=== PATIENT | female | born 1970 | race Caucasian/White ===

== ENCOUNTER 2017-02-03 09:59 | Emergency (ER) | payer OTHER ==
[~2017-02-03] VITALS: Ht 162.6 cm; Wt 63.5 kg
[2017-02-03] MEDS ORDERED: IV NORMAL SALINE 1,000ML 1,000 ML IV SCH (11:00)
[2017-02-03 11:01] LABS: BASO % 0 % (0-3); EOS # 0.6 x10^3/uL (0.0-0.7); EOS % 9 % (0-3); HEMATOCRIT 41.2 % (36.0-47.0); HEMOGLOBIN 14.1 g/dL (12.0-15.5); LYMPH # 2.4 x10^3/uL (1.0-4.8); LYMPH % 34 % (24-48); MEAN CORPUSCULAR HEMOGLOBIN 31 pg (25-35); MEAN CORPUSCULAR HGB CONC 34 g/dL (31-37); MEAN CORPUSCULAR VOLUME 89 fL (79-100); MONO # 0.4 x10^3/uL (0.0-1.1); MONO % 6 % (0-9); NEUT # 3.6 x10^3uL (1.8-7.7); NEUT % 51 % (31-73); PLATELET COUNT 212 x10^3/uL (140-400); RED BLOOD COUNT 4.61 x10^6/uL (3.50-5.40); RED CELL DISTRIBUTION WIDTH 12.4 % (11.5-14.5)
[2017-02-03 11:12] LABS: ALBUMIN 3.1 g/dL (3.4-5.0); ALBUMIN/GLOBULIN RATIO 0.8 (1.0-1.7); CALCIUM 8.7 mg/dL (8.5-10.1); GFR 59.7; TOTAL BILIRUBIN 0.5 mg/dL (0.2-1.0); TOTAL PROTEIN 6.9 g/dL (6.4-8.2)
[2017-02-03] MEDS ORDERED: IOHEXOL 300 MG/ML 75 ML VIAL. IV ONE (11:15)
--- NOTE | 2017-02-03 12:04 | PHYS DOC ---
Past History Past Medical History: No Pertinent History Past Surgical History: No Surgical History Alcohol Use: None Drug Use: None Adult General Chief Complaint Chief Complaint: ABNORMAL LABS HPI HPI Patient is a 46-year-old female who was sent to the ED by the doctor's office after having lab tests done yesterday which returned with an elevated d-dimer of 3.16. Patient tells me that since January 30, she has been having pain off and on. She had some on Sunday afternoon, Sunday morning she was fine the it occurred again in the afternoon, and then she was up for about 3:58 in the morning. she felt bad all day with the pain. Sunday in the morning she felt better by 2 in the afternoon the pain started again. She went to the clinic for evaluation and had tests done, see below. The pain is described as "not really burning, feeling a little bit like being kicked in the stomach, kind of like gas pain but not really". She's had some nausea but no vomiting and has not really felt like she was going to vomit. She had chills last night. No changes in her stool. She doesn't believe the pain has really changed with eating. She did try some [place] which sounds like a Tums type product yesterday without relief. She took Aleve a couple of times without relief. The pain is at its worst, it is "severe" and she lays in a dark room curled up. At some times it is completely gone. It is gone right now. Patient had a cholecystectomy in 2007 for gallbladder problems, she does not know whether or not she had gallstones. She's never had pain exactly like this before that possibly her gallbladder pain was kind of like this. Patient denies history of DVT or PE. Does not believe she is , she is on Gilda. Denies history of ulcer. They are family who came to the area recently. Lab tests faxed from the [facility] that were done yesterday: EKG read by me. Sinus rhythm. Heart rate 65. There are no acute ST or T wave changes indicative of ischemia or infarction. No STEMI. Normal EKG. This was done 02/02/2017 at 1638 CBC: WBC 9.7, hemoglobin 14.5, platelets 259 Chemistries: BUN 13, creatinine 0.85, electrolytes normal. Glucose 86. Total bili 0.3, alkaline phosphatase 110, transaminases 24 and 29. Lipase 26, troponin less than 0.01. D-dimer elevated at 3.16, normal range up to 0.49. Review of Systems Review of Systems Constitutional: As in history of present illness Eyes: Denies change in visual acuity, redness, or eye pain [] HENT: Denies nasal congestion or sore throat [] Respiratory: Denies cough or shortness of breath [] Cardiovascular: Denies chest pain, her pain is lower GI: As in history of present illness : Denies dysuria or hematuria [] Musculoskeletal: Denies back pain or joint pain [] Integument: Denies rash or skin lesions [] Neurologic: Denies headache, focal weakness or sensory changes [] Current Medications Current Medications Current Medications Medications (Trade) Dose Ordered Sig/Jacek Start Time Stop Time Status Last Admin Dose Admin Iohexol (Omnipaque 300 Mg/ml) 75 ml 1X ONCE 02/03/17 11:15 02/03/17 11:16 DC 02/03/17 11:32 75 ML Sodium Chloride 1,000 ml @ 1,000 mls/hr Q1H 02/03/17 11:00 02/03/17 11:59 Allergies Allergies Allergies Coded Allergies Type Severity Reaction Last Updated Verified Sulfa (Sulfonamide Antibiotics) Allergy Intermediate Rash 02/03/17 Yes Physical Exam Physical Exam Constitutional: Well developed, well nourished, no acute distress, non-toxic appearance. Alert, mentating normally, states she is free of pain at this time HENT: Normocephalic, atraumatic, bilateral external ears normal, nose normal. [ ] Eyes: conjunctiva normal, no discharge. [] Neck: Normal range of motion, no stridor. [] Cardiovascular:Heart rate regular rhythm, no murmur [] Lungs & Thorax: Bilateral breath sounds clear to auscultation [] Abdomen: Bowel sounds normal, soft, no tenderness, no masses, no pulsatile masses. No guarding or rebound, no tenderness, abdomen is entirely benign at this time. Skin: Warm, dry, no erythema, no rash. [] Extremities: No tenderness, no cyanosis, no clubbing, ROM intact, no edema. [] Neurologic: Alert and oriented X 3, normal motor function, normal sensory function, no focal deficits noted. [] Current Patient Data Vital Signs Vital Signs Date Time Temp Pulse Resp B/P (MAP) Pulse Ox O2 Delivery O2 Flow Rate FiO2 02/03/17 11:05 64 20 103/54 (70) 95 Room Air 02/03/17 09:59 98.2 Lab Results Laboratory Tests Test 02/03/17 10:40 02/03/17 11:03 White Blood Count 7.0 x10^3/uL (4.0-11.0) Red Blood Count 4.61 x10^6/uL (3.50-5.40) Hemoglobin 14.1 g/dL (12.0-15.5) Hematocrit 41.2 % (36.0-47.0) Mean Corpuscular Volume 89 fL (79-100) Mean Corpuscular Hemoglobin 31 pg (25-35) Mean Corpuscular Hemoglobin Concent 34 g/dL (31-37) Red Cell Distribution Width 12.4 % (11.5-14.5) Platelet Count 212 x10^3/uL (140-400) Neutrophils (%) (Auto) 51 % (31-73) Lymphocytes (%) (Auto) 34 % (24-48) Monocytes (%) (Auto) 6 % (0-9) Eosinophils (%) (Auto) 9 % (0-3) H Basophils (%) (Auto) 0 % (0-3) Neutrophils # (Auto) 3.6 x10^3uL (1.8-7.7) Lymphocytes # (Auto) 2.4 x10^3/uL (1.0-4.8) Monocytes # (Auto) 0.4 x10^3/uL (0.0-1.1) Eosinophils # (Auto) 0.6 x10^3/uL (0.0-0.7) Basophils # (Auto) 0.0 x10^3/uL (0.0-0.2) Sodium Level 139 mmol/L (136-145) Potassium Level 4.0 mmol/L (3.5-5.1) Chloride Level 104 mmol/L (98-107) Carbon Dioxide Level 27 mmol/L (21-32) Anion Gap 8 (6-14) Blood Urea Nitrogen 12 mg/dL (7-20) Creatinine 1.0 mg/dL (0.6-1.0) Estimated GFR (Cockcroft-Gault) 59.7 BUN/Creatinine Ratio 12 (6-20) Glucose Level 85 mg/dL (70-99) Calcium Level 8.7 mg/dL (8.5-10.1) Total Bilirubin 0.5 mg/dL (0.2-1.0) Aspartate Amino Transferase (AST) 16 U/L (15-37) Alanine Aminotransferase (ALT) 28 U/L (14-59) Alkaline Phosphatase 98 U/L (46-116) Total Protein 6.9 g/dL (6.4-8.2) Albumin 3.1 g/dL (3.4-5.0) L Albumin/Globulin Ratio 0.8 (1.0-1.7) L Lipase 112 U/L (73-393) POC Urine HCG, Qualitative hcg negative (Negative) EKG EKG [] Radiology/Procedures Radiology/Procedures CT angiogram of the chest read by the radiologist. Negative for pulmonary embolism or other acute findings. CT of the abdomen and pelvis read by the radiologist. Entirely normal for any findings, normal liver, pancreas, spleen, bile ducts. [] Course & Med Decision Making Course & Med Decision Making Pertinent Labs and Imaging studies reviewed. (See chart for details) 46-year-old female has had intermittent epigastric pain for 5 days now. On my evaluation, the pain seems more GI to me. She was seen in the office yesterday and had labs and EKG which were only positive for elevated d-dimer. She was sent for the concern of elevated d-dimer but on my evaluation I believe her pain seems more GI. Therefore, I did order CT angiography for rule out PE but also ordered CT of the abdomen and pelvis. Patient was pain-free in the emergency department. CT scans are all unrevealing and therefore reassuring. She has had cholecystectomy, the CT scan imaged her bile ducts well and there is no indication on labs or CT scan of a bile duct etiology. I believe she should have GI follow-up and probably endoscopy as the next step. Discussed this with the patient and her . We will start her on a PPI for now. See instructions for plan. [] Dragon Disclaimer Dragon Disclaimer This chart was dictated in whole or in part using Voice Recognition software in a busy, high-work load, and often noisy Emergency Department environment. It may contain unintended and wholly unrecognized errors or omissions. Departure Departure: Impression: Primary Impression: Abdominal pain, acute, epigastric Disposition: HOME, SELF-CARE Condition: STABLE Referrals: PCP,NO (PCP) Patient Instructions: Abdominal Pain, [id number] Additional Instructions: Today, lab tests are normal. CT scans were normal for your chest, abdomen, and pelvis. Specifically, no blood clot, no abnormality of the heart, blood vessels of the chest, lungs, lymph nodes of the chest, more of the liver, spleen, pancreas, bile ducts, kidneys, or other abdominal organs. At this point the only thing we really have left might be pain from a stomach ulcer. We will start treatment for excess stomach acid and I believe you should follow up with a GI doctor next. Call clinic on Sunday morning to be seen and see if you can get a GI appointment. Scripts Omeprazole (OMEPRAZOLE) 40 Mg Capsule. 1 CAP PO DAILY for stomach pain, #30 CAP 0 Refills Prov: CRUZ FRIAS MD 02/03/17 CRUZ FRIAS MD Feb 03, 2017 12:04
--- NOTE | 2017-02-03 12:27 | RAD ---
CTA of the chest with and without contrast CT study of the abdomen and pelvis with contrast Clinical indications: Elevated d-dimer. Mid chest pain and epigastric pain. History of cholecystectomy. Technique: Noncontrast axial localizer was performed. After IV infusion of 75 mL of Omnipaque 300, helical CT scanning of the chest was performed using the CT pulmonary embolism protocol. A coronal MIP reconstruction was generated. Subsequently, helical CT scanning of the abdomen and pelvis was performed. No GI contrast was administered. This may decrease the sensitivity to detect GI tract pathology. PQRS Compliance Statement: One or more of the following individualized dose reduction techniques were utilized for this examination: 1. Automated exposure control 2. Adjustment of the mA and/or kV according to patient size 3. Use of iterative reconstruction technique CTA CHEST: No pulmonary embolism is evident. No focal aneurysmal dilatation or dissection of the thoracic aorta is seen. The heart size is normal and no pericardial effusion is seen. No enlarged thoracic lymphadenopathy is seen. No lung mass or lung consolidation is seen. No pleural effusion or pneumothorax is seen. The proximal bronchial tree is patent. No osteolytic process is seen. IMPRESSION: No pulmonary embolism. No acute lung infiltrate. ABDOMEN AND PELVIS CT: The liver and spleen and pancreas are normal. The gallbladder is surgically absent. No extra hepatic biliary ductal dilatation is seen. No adrenal mass is seen. No renal mass or hydronephrosis or hydroureter is seen. No focal aneurysmal dilatation of the abdominal aorta is seen. No enlarged abdominal or pelvic lymphadenopathy is seen. Urinary bladder wall is smooth. No uterine mass or fibroid is seen. No dominant ovarian cyst or mass is evident. No obstructive bowel pattern is seen. No free air or free fluid or mesenteric inflammatory change is seen. The appendix is normal. 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 No osteolytic process is seen. IMPRESSION: No acute abnormality of the abdomen or pelvis is seen.
[2017-02-03 13:00] VITALS: BP 96/64
[2017-02-03] MEDS ORDERED: OMEP40CA5 PO (13:15)
== END 2017-02-03 13:25 | disposition home or self-care (01) ==
LOC: ER 09:59
DX: R10.13 Epigastric pain (principal); Z88.2 Allergy status to sulfonamides; Z90.49 Acquired absence of other specified parts of digestive tract
CPT/HCPCS: 36415; 71275; 74177; 80053; 81025; 83690; 85027; 96360; 96361; 99285; Q9967; J7030